=== PATIENT | female | born 1985 | race Asian ===

== ENCOUNTER → 2017-12-20 | Outpatient (CLI) | payer BC | LOC: FIMAGING 13:29 | PROVIDERS: ATTEND Obstetrics & Gynecology | DX: O09.813 Supervision of pregnancy resulting from assisted reproductive technology, third trimester (principal); O30.033 Twin pregnancy, monochorionic/diamniotic, third trimester; O26.873 Cervical shortening, third trimester; Z3A.29 29 weeks gestation of pregnancy ==

== ENCOUNTER → 2017-12-29 | Outpatient (CLI) | payer BC | LOC: FIMAGING 10:53 | PROVIDERS: ATTEND Obstetrics & Gynecology | DX: O30.032 Twin pregnancy, monochorionic/diamniotic, second trimester (principal); O26.872 Cervical shortening, second trimester; O09.812 Supervision of pregnancy resulting from assisted reproductive technology, second trimester; Z3A.22 22 weeks gestation of pregnancy ==

== ENCOUNTER → 2018-01-03 | Outpatient (CLI) | payer BC | LOC: FIMAGING 11:31 | PROVIDERS: ATTEND Obstetrics & Gynecology | DX: O30.032 Twin pregnancy, monochorionic/diamniotic, second trimester (principal); O09.812 Supervision of pregnancy resulting from assisted reproductive technology, second trimester; O98.412 Viral hepatitis complicating pregnancy, second trimester; B19.10 Unspecified viral hepatitis B without hepatic coma; Z3A.23 23 weeks gestation of pregnancy ==

== ENCOUNTER → 2018-01-19 | Outpatient (CLI) | payer BC | LOC: FIMAGING 11:36 | PROVIDERS: ATTEND Obstetrics & Gynecology | DX: O30.032 Twin pregnancy, monochorionic/diamniotic, second trimester (principal); O26.872 Cervical shortening, second trimester; O09.812 Supervision of pregnancy resulting from assisted reproductive technology, second trimester; Z3A.25 25 weeks gestation of pregnancy ==

== ENCOUNTER → 2018-02-02 | Outpatient (CLI) | payer BC | LOC: FIMAGING 12:41 | PROVIDERS: ATTEND Obstetrics & Gynecology | DX: O30.033 Twin pregnancy, monochorionic/diamniotic, third trimester (principal); Z3A.27 27 weeks gestation of pregnancy ==

== ENCOUNTER → 2018-02-14 | Outpatient (CLI) | payer BC | LOC: FIMAGING 14:32 | PROVIDERS: ATTEND Obstetrics & Gynecology | DX: O30.033 Twin pregnancy, monochorionic/diamniotic, third trimester (principal); O36.5931 Maternal care for other known or suspected poor fetal growth, third trimester, fetus 1; O36.5932 Maternal care for other known or suspected poor fetal growth, third trimester, fetus 2; O43.123 Velamentous insertion of umbilical cord, third trimester; O26.873 Cervical shortening, third trimester; O09.813 Supervision of pregnancy resulting from assisted reproductive technology, third trimester; O98.413 Viral hepatitis complicating pregnancy, third trimester; B19.10 Unspecified viral hepatitis B without hepatic coma; Z3A.29 29 weeks gestation of pregnancy ==

== ENCOUNTER 2018-02-17 08:49 | Observation (INO) | payer BC | END 2018-02-17 11:00 | disposition home or self-care (01) | LOC: FLD 08:49 | PROVIDERS: ADMIT Obstetrics & Gynecology; ATTEND Obstetrics & Gynecology | DX: O30.093 Twin pregnancy, unable to determine number of placenta and number of amniotic sacs, third trimester (principal); O09.813 Supervision of pregnancy resulting from assisted reproductive technology, third trimester; O98.413 Viral hepatitis complicating pregnancy, third trimester; Z3A.20 20 weeks gestation of pregnancy ==

== ENCOUNTER 2018-02-21 09:17 | Outpatient (CLI) | payer BC ==
[2018-02-21] MEDS ORDERED: TERBUTALINE SULFATE 1 MG/ML VIAL SC PRN (10:14)
== END 2018-02-21 10:00 | disposition home or self-care (01) ==
LOC: FOBOP 09:17
PROVIDERS: ATTEND Advanced Practice Midwife
DX: O30.093 Twin pregnancy, unable to determine number of placenta and number of amniotic sacs, third trimester (principal); Z3A.30 30 weeks gestation of pregnancy

== ENCOUNTER → 2018-02-23 | Outpatient (CLI) | payer BC | LOC: FIMAGING 09:57 | PROVIDERS: ATTEND Obstetrics & Gynecology | DX: O30.033 Twin pregnancy, monochorionic/diamniotic, third trimester (principal); O98.411 Viral hepatitis complicating pregnancy, first trimester; B18.1 Chronic viral hepatitis B without delta-agent; Z3A.30 30 weeks gestation of pregnancy ==

== ENCOUNTER 2018-02-24 11:11 | Observation (INO) | payer BC | END 2018-02-24 12:38 | disposition home or self-care (01) | LOC: FOBOP 11:11 → FLD 12:13 → INTOOBSV 12:13 | PROVIDERS: ADMIT Obstetrics & Gynecology; ATTEND Obstetrics & Gynecology | DX: O30.003 Twin pregnancy, unspecified number of placenta and unspecified number of amniotic sacs, third trimester (principal); Z3A.32 32 weeks gestation of pregnancy ==

== ENCOUNTER → 2018-03-02 | Outpatient (CLI) | payer BC | LOC: FIMAGING 13:04 | PROVIDERS: ATTEND Obstetrics & Gynecology | DX: O30.033 Twin pregnancy, monochorionic/diamniotic, third trimester (principal); O34.33 Maternal care for cervical incompetence, third trimester; O98.413 Viral hepatitis complicating pregnancy, third trimester; Z3A.31 31 weeks gestation of pregnancy ==

== ENCOUNTER 2018-03-03 12:05 | Observation (INO) | payer BC ==
--- NOTE | 2018-03-03 17:09 | OBPROG ---
Labor Progress Note Assessment/Plan: Assessment: 32 y/o with mono-di TIUP @ 32 weeks for testing Plan: NST reactive, Cat I strip x2 with accels, no decels and mod variability Cont twice weekly NSTs 03/03/18 17:18 - Contraction Pattern Assessment Current Contraction Pattern: Other (Specify) (none) - FHR Assessment Twin A FHR (bpm): 130 FHR Pattern Variability: Moderate FHR Category: 1 Twin B FHR (bpm): 140 FHR Pattern Variability: Moderate FHR Category: 1 ICD10 Worksheet Patient Problems: Problems Problem Status Onset Monochorionic diamniotic twin gestation in third trimester Acute Twin Acute - ICD10 Problem Qualifiers (1) Twin (2) Monochorionic diamniotic twin gestation in third trimester
== END 2018-03-03 13:15 | disposition home or self-care (01) ==
LOC: FOBOP 12:05 → FLD 12:56
PROVIDERS: ADMIT Obstetrics & Gynecology; ATTEND Obstetrics & Gynecology
DX: O30.033 Twin pregnancy, monochorionic/diamniotic, third trimester (principal); Z3A.32 32 weeks gestation of pregnancy

== ENCOUNTER 2018-03-07 08:56 | Observation (INO) | payer BC | END 2018-03-07 10:20 | disposition home or self-care (01) | LOC: FLD 08:56 → EDSTATUS 12:00 | PROVIDERS: ADMIT Advanced Practice Midwife; ATTEND Advanced Practice Midwife | DX: O30.003 Twin pregnancy, unspecified number of placenta and unspecified number of amniotic sacs, third trimester (principal); Z3A.37 37 weeks gestation of pregnancy ==

== ENCOUNTER → 2018-03-09 | Outpatient (CLI) | payer BC | LOC: FIMAGING 12:46 | PROVIDERS: ATTEND Obstetrics & Gynecology | DX: O09.513 Supervision of elderly primigravida, third trimester (principal); O30.033 Twin pregnancy, monochorionic/diamniotic, third trimester; O36.5931 Maternal care for other known or suspected poor fetal growth, third trimester, fetus 1; O34.43 Maternal care for other abnormalities of cervix, third trimester; Z3A.32 32 weeks gestation of pregnancy ==

== ENCOUNTER 2018-03-10 06:09 | Observation (INO) | payer BC | END 2018-03-10 10:45 | disposition home or self-care (01) | LOC: FLD 10:00 → EDSTATUS 12:00 | PROVIDERS: ADMIT Hospitalist; ATTEND Hospitalist | DX: O30.003 Twin pregnancy, unspecified number of placenta and unspecified number of amniotic sacs, third trimester (principal); Z3A.00 Weeks of gestation of pregnancy not specified ==

== ENCOUNTER 2018-03-14 06:09 | Observation (INO) | payer BC | END 2018-03-14 16:00 | disposition home or self-care (01) | LOC: FLD 08:45 → EDSTATUS 12:00 | PROVIDERS: ADMIT Hospitalist; ATTEND Hospitalist | DX: O30.003 Twin pregnancy, unspecified number of placenta and unspecified number of amniotic sacs, third trimester (principal); Z3A.33 33 weeks gestation of pregnancy ==

== ENCOUNTER → 2018-03-16 | Outpatient (CLI) | payer BC | LOC: FIMAGING 13:05 | PROVIDERS: ATTEND Obstetrics & Gynecology | DX: O30.033 Twin pregnancy, monochorionic/diamniotic, third trimester (principal); O36.5931 Maternal care for other known or suspected poor fetal growth, third trimester, fetus 1; O36.5932 Maternal care for other known or suspected poor fetal growth, third trimester, fetus 2; O26.873 Cervical shortening, third trimester; O09.813 Supervision of pregnancy resulting from assisted reproductive technology, third trimester; Z3A.33 33 weeks gestation of pregnancy ==

== ENCOUNTER 2018-03-20 12:57 | Outpatient (CLI) | payer BC ==
--- NOTE | 2018-03-20 17:47 | OBPROG ---
Labor Progress Note Assessment/Plan: Assessment: IUP at 34+ wks Twins, mono/di Plan: Routine NST for twins 03/20/18 17:44 Subjective/Intrapartum Course: 03/20/18 17:45 Pt doing fine. GFM x2. no definitive ctxns. no bld. no LOF. pressure in low pelvis - Contraction Pattern Assessment Current Contraction Pattern: Other (Specify) (none) - FHR Assessment Twin A FHR (bpm): 140 FHR Pattern Variability: Moderate FHR Category: 1 Twin B FHR (bpm): 130 FHR Pattern Variability: Moderate FHR Category: 1 Oxytocin Orders Assessment - Pre-Induction/Augmentation Assessment Gestational Age: 34 week(s) and 3 day(s) ICD10 Worksheet Patient Problems: Problems Problem Status Onset Monochorionic diamniotic twin gestation in third trimester Acute Twin Acute
== END 2018-03-20 13:30 | disposition home or self-care (01) ==
LOC: FOBOP 12:57
PROVIDERS: ATTEND Obstetrics & Gynecology
DX: O30.033 Twin pregnancy, monochorionic/diamniotic, third trimester (principal); Z3A.34 34 weeks gestation of pregnancy

== ENCOUNTER → 2018-03-23 | Outpatient (CLI) | payer BC | LOC: FOBOP 13:25 | PROVIDERS: ATTEND Advanced Practice Midwife | DX: O30.003 Twin pregnancy, unspecified number of placenta and unspecified number of amniotic sacs, third trimester (principal); Z3A.34 34 weeks gestation of pregnancy ==

== ENCOUNTER → 2018-03-23 | Outpatient (CLI) | payer BC | LOC: FIMAGING 13:35 | PROVIDERS: ATTEND Obstetrics & Gynecology | DX: O30.033 Twin pregnancy, monochorionic/diamniotic, third trimester (principal); O36.5931 Maternal care for other known or suspected poor fetal growth, third trimester, fetus 1; O36.5932 Maternal care for other known or suspected poor fetal growth, third trimester, fetus 2; O09.513 Supervision of elderly primigravida, third trimester; Z3A.34 34 weeks gestation of pregnancy ==

== ENCOUNTER 2018-03-24 09:42 | Observation (INO) | payer BC ==
[2018-03-24] MEDS ORDERED: BETAMETHASONE IM SYRINGE IM ONE (10:37)
[2018-03-25] MEDS ORDERED: BETAMETHASONE IM SYRINGE IM ONE (10:30)
== END 2018-03-24 11:45 | disposition home or self-care (01) ==
LOC: FLD 09:42
PROVIDERS: ADMIT Obstetrics & Gynecology; ATTEND Obstetrics & Gynecology
PROC: 3E0E73Z Introduction of Anti-inflammatory into Products of Conception, Via Natural or Artificial Opening (ICD-10-PCS; principal; 2018-03-24)
DX: O30.003 Twin pregnancy, unspecified number of placenta and unspecified number of amniotic sacs, third trimester (principal); Z3A.35 35 weeks gestation of pregnancy
CPT/HCPCS: J0702

== ENCOUNTER 2018-03-25 11:18 | Observation (INO) | payer BC ==
[2018-03-25] MEDS ORDERED: BETAMETHASONE IM SYRINGE IM ONE (11:43)
--- NOTE | 2018-03-25 14:00 | SOAPPROG ---
SOAP Progress Note Assessment/Plan: Assessment: [id number] Twin IUP@35+wks NST- cat 1 Plan: d/c home return to L&D tomorrow for IOL 03/25/18 13:54 03/25/18 14:01 Subjective: Pt doing well, no complaints; denies any contractions, LOF, VB. Reports +FM x2 ICD10 Worksheet Patient Problems: Problems Problem Status Onset Monochorionic diamniotic twin gestation in third trimester Acute Twin Acute
== END 2018-03-25 13:20 | disposition home or self-care (01) ==
LOC: FLD 11:18
PROVIDERS: ADMIT Obstetrics & Gynecology; ATTEND Obstetrics & Gynecology
DX: O30.003 Twin pregnancy, unspecified number of placenta and unspecified number of amniotic sacs, third trimester (principal); Z3A.35 35 weeks gestation of pregnancy
CPT/HCPCS: J0702

== ENCOUNTER 2018-03-26 06:55 | Inpatient (IN) | payer BC ==
[2018-03-26] MEDS ORDERED: LIDOCAINE 1% 300 MG/30 ML SDV ONE (07:24)
[2018-03-26] MEDS ORDERED: MISOPROSTOL 200 MCG TAB ONE (07:25)
[2018-03-26] MEDS ORDERED: AMMONIA AROMATIC 1 EACH AMP IH ONE (07:25)
[2018-03-26] MEDS ORDERED: TERBUTALINE SULFATE 1 MG/ML VIAL ONE (07:25)
[2018-03-26] MEDS ORDERED: OLIVE OIL 118 ML BTL ONE (07:25)
[2018-03-26] MEDS ORDERED: OXYTOCIN 10 UNIT/ML VIAL ONE (07:25)
[2018-03-26] MEDS ORDERED: EPSOM SALT 454 GM TP PRN (07:33)
[2018-03-26] MEDS ORDERED: IBUPROFEN 600 MG TAB PO PRN (07:33)
[2018-03-26] MEDS ORDERED: MISOPROSTOL 200 MCG TAB PR PRN (07:33)
[2018-03-26] MEDS ORDERED: OXYTOCIN/RINGERS LACTATE 1,000 ML IV PRN (07:33)
[2018-03-26] MEDS ORDERED: LR 1,000 ML IV PRN (07:33)
[2018-03-26] MEDS ORDERED: OLIVE OIL 118 ML BTL MISC PRN (07:33)
[2018-03-26] MEDS ORDERED: LIDOCAINE 1% 300 MG/30 ML SDV SC PRN (07:33)
[2018-03-26] MEDS ORDERED: TERBUTALINE SULFATE 1 MG/ML VIAL IV PRN (07:33)
[2018-03-26 08:17] LABS: PLATELET COUNT 104 10^3/uL (150-400)
[2018-03-26] MEDS ORDERED: AMPICILLIN SODIUM 2 GM in NS 100 ML IV ONE (10:25)
--- NOTE | 2018-03-26 10:25 | PDGENHP ---
History and Physical - Chief Complaint IOL [place] Twins w/ IUGR at 35 wks - History of Present Illness Yovanny is a 33 yo G1 with IVF-conceived [place] twins today at 35w2d - who presents for cerclage removal and IOL. This was an IVF established in [place] and pt then moved to [place] and established with us just prior to 20 wks. She had normal Counsyl NIPT and normal PNL with chorionicity US prior to transfer. 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 Normal NT on both babies. echo normal x 2, short cervix 1.2cm 22 wks, Giraldo cerclage at [facility] single, PV prometrium 200. GBS unknown. Glucola 142, normal 3hr. Did have reassuring testing. Most recent [facility] visit, intermittent reversed EDF on baby A - rec BMZ then IOL. Labs: O pos AB neg Rubella Immune HepBSAg POS GC/C neg History Information - Allergies/Home Medication List Allergies/Adverse Reactions: No Known Allergies Allergy (Unverified 03/26/18 07:33) I have personally reviewed and updated: family history, medical history, social history, surgical history - Past Medical History no pertinent PMH - Surgical History Reports: no pertinent surgical hx - Social History Smoking Status: Never smoked Review of Systems Review of Systems: ROS: 10pt was reviewed & negative except for what was stated in HPI & below Physical Exam Physical Exam: Constitutional: no apparent distress Lab Data & Imaging Review 03/27/18 10:47 WBC 11.00 10^3/uL (3.80-9.50) H 03/26/18 07:54 RBC 3.31 10^6/uL (4.18-5.33) L 03/26/18 07:54 Hgb 11.3 g/dL (12.6-16.3) L 03/26/18 07:54 Hct 32.1 % (38.0-47.0) L 03/26/18 07:54 MCV 97.0 fL (81.5-99.8) 03/26/18 07:54 MCH 34.1 pg (27.9-34.1) 03/26/18 07:54 MCHC 35.2 g/dL (32.4-36.7) 03/26/18 07:54 RDW 14.4 % (11.5-15.2) 03/26/18 07:54 Plt Count 104 10^3/uL (150-400) L 03/26/18 07:54 MPV 12.1 fL (8.7-11.7) H 03/26/18 07:54 Neut % (Auto) 77.3 % (39.3-74.2) H 03/26/18 07:54 Lymph % (Auto) 12.4 % (15.0-45.0) L 03/26/18 07:54 [place] % (Auto) 7.5 % (4.5-13.0) 03/26/18 07:54 Eos % (Auto) 0.0 % (0.6-7.6) L 03/26/18 07:54 Baso % (Auto) 0.2 % (0.3-1.7) L 03/26/18 07:54 Nucleat RBC Rel Count 0.4 % (0.0-0.2) H 03/26/18 07:54 Absolute Neuts (auto) 8.51 10^3/uL (1.70-6.50) H 03/26/18 07:54 Absolute Lymphs (auto) 1.36 10^3/uL (1.00-3.00) 03/26/18 07:54 Absolute Monos (auto) 0.82 10^3/uL (0.30-0.80) H 03/26/18 07:54 Absolute Eos (auto) 0.00 10^3/uL (0.03-0.40) L 03/26/18 07:54 Absolute Basos (auto) 0.02 10^3/uL (0.02-0.10) 03/26/18 07:54 Absolute Nucleated RBC 0.04 10^3/uL (0-0.01) H 03/26/18 07:54 Immature Gran % 2.6 % (0.0-1.1) H 03/26/18 07:54 Immature Gran # 0.29 10^3/uL (0.00-0.10) H 03/26/18 07:54 Patient ABO/Rh REJ 03/26/18 07:54 Antibody Screen REJ 03/26/18 07:54 Assessment & Plan Assessment: 33 yo w [place] twins - here for IOL. Cerclage removal. Abx for GBS known, will start pit after 2 hrs of abx. Twin delivery precautions reviewed. RUKHSANA
[2018-03-26] MEDS ORDERED: LR 500 ML IV PRN (10:28)
[2018-03-26] MEDS ORDERED: OXYTOCIN/RINGERS LACTATE 500 ML IV SCH (10:30)
[2018-03-26] MEDS: AMPICILLIN SODIUM 1 GM in NS 100 ML IV SCH ×2 (14:45→18:32)
[2018-03-26] MEDS ORDERED: METOCLOPRAMIDE 10 MG/2 ML VIAL IVP PRN (17:41)
[2018-03-26] MEDS ORDERED: NALOXONE HCL 0.4 MG/ML INJ IVP PRN (17:41)
[2018-03-26] MEDS ORDERED: PHENYLEPHRINE HCL 100 MCG/ML SYR IVP PRN (17:41)
[2018-03-26] MEDS ORDERED: ONDANSETRON 4 MG/2 ML VIAL IVP PRN (17:41)
--- NOTE | 2018-03-26 17:41 | PREANESOB ---
Obstetric Pre-Anesthesia Info - General Info Proposed Procedure: vaginal delivery of twins : 1 Para: 0 ABIDA: 04/28/18 Gestational Age: 35 week(s) and 2 day(s) - Info Status: Full Term, Twins FHR Pattern: Reassuring - Labor Status Indications for Labor Analgesia: Pain Control Labor Epidural: Proposed Anesthesia Allergies/Adverse Reactions: Allergy/AdvReac Type Severity Reaction Status Date / Time No Known Allergies Allergy Unverified 03/26/18 07:33 Visit Medications: Generic Name Dose Route Start Last Admin Trade Name Freq PRN Reason Stop Dose Admin Lactated Ringer's 1,000 mls @ 0 mls/hr 03/26/18 07:33 Lr IV 03/27/18 07:32 PRN PRN SEE PROTOCOL CONDITIONS Protocol Per Protocol Oxytocin/Lactated Ringer's 1,000 mls @ 125 mls/hr 03/26/18 07:33 Pitocin 20 Units/Lr (Premix) IV PRN PRN Post bleeding Ampicillin Sodium 1 gm/ Sodium 100 mls @ 200 mls/hr 03/26/18 14:26 03/26/18 14:45 Chloride IV 04/25/18 14:25 100 mls Q4H CINDI Administration Protocol Lactated Ringer's 500 mls @ 500 mls/hr 03/26/18 10:28 Lr IV 03/27/18 10:28 PRN PRN Maternal Hypotension Oxytocin/Lactated Ringer's 500 mls @ 0 mls/hr 03/26/18 10:30 Pitocin 30 Units/Lr (Premix) IV 09/22/18 10:29 CONT CINDI Protocol Per Protocol Ibuprofen 600 mg 03/26/18 07:33 Motrin PO ONCE PRN post , pain Lidocaine HCl 300 mg 03/26/18 07:33 Lidocaine Hcl 1% SC 09/22/18 07:32 ONCE PRN episiotomy Magnesium Sulfate 454 gm 03/26/18 07:33 Epsom Salt TP 09/22/18 07:32 Q1H PRN perineal discomfort Misoprostol 800 - 1,000 mcg 03/26/18 07:33 Cytotec IA ONCE PRN Vaginal Atony/Bleeding [place] Oil 118 ml 03/26/18 07:33 Sweet Oil MISC 09/22/18 07:32 ONCE PRN perineal massage Terbutaline Sulfate 0.25 mg 03/26/18 07:33 Brethine IV 09/22/18 07:32 ONCE PRN Tachysystole Discontinued Medications Generic Name Dose Route Start Last Admin Trade Name Delmy PRN Reason Stop Dose Admin Ammonia (Aromatic Spirit) Confirm 03/26/18 07:25 Ammonia Aromatic Administered 03/26/18 07:26 Dose 1 each IH .STK-MED ONE Ampicillin Sodium 2 gm/ Sodium 110 mls @ 220 mls/hr 03/26/18 10:25 03/26/18 10:40 Chloride IV 03/26/18 10:54 110 mls ONCE ONE Administration Protocol Lidocaine HCl Confirm 03/26/18 07:24 Lidocaine Hcl 1% Administered 03/26/18 07:25 Dose 300 mg .ROUTE .STK-MED ONE Misoprostol Confirm 03/26/18 07:25 Cytotec Administered 03/26/18 07:26 Dose 1,000 mcg .ROUTE .STK-MED ONE [place] Oil Confirm 03/26/18 07:25 Sweet Oil Administered 03/26/18 07:26 Dose 118 ml .ROUTE .STK-MED ONE Oxytocin Confirm 03/26/18 07:25 Pitocin Administered 03/26/18 07:26 Dose 40 unit .ROUTE .STK-MED ONE Terbutaline Sulfate Confirm 03/26/18 07:25 Brethine Administered 03/26/18 07:26 Dose 1 mg .ROUTE .STK-MED ONE - Anesthesia History Response to Local Anesthetics: Not Applicable Anesthesia & Operative History: No Prior Problems Family Anesthesia History: Not Applicable - Focused Exam Neck exam: FROM Mallampati Score: Class 1 Mouth exam: normal dental/mouth exam Pulmonary: no respiratory distress Cardiovascular: regular rate and rhythym Labs: 03/26/18 07:54 Patient ABO/Rh O POSITIVE 03/26/18 10:20 - Plan Anesthetic Plan: labor epidural Consent Signed and on Chart: Yes Patient/Guardian Understands and Agrees to Plan: Yes
[2018-03-26] MEDS ORDERED: BUPIVACAINE 0.25% 30 ML SDV ONE (17:50)
[2018-03-26] MEDS ORDERED: LR 500 ML IV SCH (18:00)
[2018-03-26] MEDS ORDERED: fentaNYL 2MCG/ML/BUP 0.1% RTU 100 ML EP SCH (18:00)
[2018-03-26] MEDS ORDERED: fentaNYL 200 MCG, BUPIVACAINE 0.5% 20 ML in NS 100 ML EP SCH (18:00)
--- NOTE | 2018-03-26 18:25 | POSTANESTH ---
Post Anesthetic Evaluation Cardiovascular Status: Normal, Stable Respiratory Status: Normal, Stable Level of Consciousness/Mental Status: Can Participate in Eval Pain Control: Adequate, Prn Tx Ordered Nausea/Vomiting Control: Adequate, Prn Tx Ordered Complications Possibly Related to Anesthesia: None Noted
--- NOTE | 2018-03-26 19:49 | SOAPPROG ---
SOAP Progress Note Assessment/Plan: Assessment: twins near complete and ready for double setup Dr. Nikki santa reviewed and agree Plan: arrived at 1932, pt. complete and ready to push I will remain present for duration with pain control or other anesthetics as needed, including SAB/GA if needed. 03/26/18 19:46 Subjective: pt. with twins (vertex/vertex) and ready for with double set up Objective: Laboratory Results 03/26/18 07:54 9 cm at 1915 and ready for double set up - Pending Discharge Pending Discharge Within 24 Hours: No Pending Discharge Within 48 Hours: No ICD10 Worksheet Patient Problems: Problems Problem Status Onset Twin Acute - ICD10 Problem Qualifiers (1) Twin Qualifiers: Trimester: third trimester
--- NOTE | 2018-03-26 20:41 | POSTANESTH ---
Post Anesthetic Evaluation Cardiovascular Status: Normal, Stable Respiratory Status: Normal, Stable Level of Consciousness/Mental Status: Can Participate in Eval, Alert and Oriented Pain Control: Adequate, Prn Tx Ordered Nausea/Vomiting Control: Adequate, Prn Tx Ordered Complications Possibly Related to Anesthesia: None Noted (KAREN worked well and wearing off nicely)
--- NOTE | 2018-03-26 20:53 | OBDEL ---
Info Type: Vaginal Presentation at Delivery: Vertex L&D Analgesia/Anesthesia Type: Epidural GBS+: Yes Antibiotic Used for + GBS: Ampicillin Intrapartum Medications: Generic Name Dose Route Start Last Admin Trade Name Delmy PRN Reason Stop Dose Admin Ampicillin Sodium 1 gm/ Sodium 100 mls @ 200 mls/hr 03/26/18 14:26 03/26/18 18:32 Chloride IV 04/25/18 14:25 100 mls Q4H CINDI Administration Protocol Discontinued Medications Generic Name Dose Route Start Last Admin Trade Name Freq PRN Reason Stop Dose Admin Ampicillin Sodium 2 gm/ Sodium 110 mls @ 220 mls/hr 03/26/18 10:25 03/26/18 10:40 Chloride IV 03/26/18 10:54 110 mls ONCE ONE Administration Protocol Indications for Delivery: Growth Restriction Mo-Do Twins Vaginal Delivery - Delivery Provider Delivery Physician/CNM: Jefry Pereyra - Labor and Delivery Onset of Contractions Date: 03/26/18 Onset of Contractions Time: 13:00 Onset of Contractions Type: Augmented Rupture of Membranes Date: 03/26/18 Rupture of Membranes Time: 20:00 Rupture of Membranes Type: Artificial Amniotic Fluid Color: Clear Dilation Complete Date: 03/26/18 Dilation Complete Time: 20:00 Non-surgical Procedures: Amniotomy, FSE Laceration: 1st Degree (Left sidewall) Repair: 2-0, Vicryl (Single figure of eight) Vaginal Sponge Count Correct: Yes Vaginal Needle Count Correct: Yes Vaginal Sweep Performed: Yes EBL: 400cc Delivery Events: None, Nuchal Cord (Tight on baby A, cut at perineum.) Delivery Comment: Pt had epidural and Pitocin running -- AROM had been performed on baby A and FSE placed hours earlier. Tracings for both babies Category I throughout Stage I. I was alerted that pt was 9cm so we moved her to the OR for Stage II. Positioned in low lithotomy on the OR table, legs in stirrups. SCE confirmed completely dilated. Pt pushed for approximately 20 minutes with baby A, ultimately delivering in direct OA position, very tight nuchal cord that I had to cut at the perineum - no delayed cord clamping for baby A. Once cord cut, baby handed off the peds. FHR for baby B 140s and stable right off the bat after delivery of A. SCE repeated and vertex of baby B already down and well applied to cervix. AROM performed with clear fluid for B. Pt pushed 4 times with baby B and delivered him direct OP without issue. Baby placed on moms chest - delayed cord clamping 60 seconds then handed off to peds. Placentas ( fused) delivered easily in 2 minutes. Shallow left sidewall laceration needed one [id number] with 2-0 vicryl. Mom and babies doing well in room after repair. Did did have some light but ongoing bleeding during repair that seemed uterine, so placed 1000mcg rectal Cytotec in addition to IV Pitocin. Cord Gases: Cord Gases Cord Blood PCO2 53.5 mmHg (37-60) 03/26/18 20:33 Cord Base Excess -0.2 mEq/L (-13.6--3.2) H 03/26/18 20:33 Cord ABG pH 7.32 (7.10-7.37) 03/26/18 20:33 Cord VBG pH TNP 03/26/18 20:33 - Medications Labor Augmentation/Induction Methods Used: Pitocin Labor Augmentation/Induction Indication: IUGR Operative Report - Delivery Cord Gases: Cord Gases Cord Blood PCO2 53.5 mmHg (37-60) 03/26/18 20:33 Cord Base Excess -0.2 mEq/L (-13.6--3.2) H 03/26/18 20:33 Cord ABG pH 7.32 (7.10-7.37) 03/26/18 20:33 Cord VBG pH TNP 03/26/18 20:33 [place] Data ABIDA: 04/28/18 Gestational Age: 35 week(s) and 2 day(s) Twin A Delivery Date: 03/26/18 Delivery Time: 20:17 Sex of Infant: Male Twin B Delivery Date: 03/26/18 Delivery Time: 20:23 Sex of Infant: Male ICD10 Worksheet Patient Problems: Problems Problem Status Onset Cervical cerclage suture present Acute IUGR (intrauterine growth retardation) affecting mother Acute In vitro fertilization Acute Monochorionic diamniotic twin gestation Acute Twin Acute Uterine cervical insufficiency during Acute - ICD10 Problem Qualifiers (1) Monochorionic diamniotic twin gestation Qualifiers: Trimester: third trimester Qualified Code(s): O30.033 - Twin , monochorionic/diamniotic, third trimester (2) IUGR (intrauterine growth retardation) affecting mother Qualifiers: Fetus number: fetus 2 of multiple gestation Trimester: third trimester Qualified Code(s): O36.5932 - Maternal care for other known or suspected poor growth, third trimester, fetus 2 (3) Uterine cervical insufficiency during (4) Cervical cerclage suture present Qualifiers: Trimester: third trimester Qualified Code(s): O34.33 - Maternal care for cervical incompetence, third trimester (5) In vitro fertilization
[2018-03-26] MEDS ORDERED: SIMETHICONE 80 MG TAB CHEW PO PRN (21:05)
[2018-03-26] MEDS ORDERED: oxyCODONE IR 5 MG TAB PO PRN (21:05)
[2018-03-26] MEDS ORDERED: DOCUSATE SODIUM 100 MG CAP PO PRN (21:05)
[2018-03-26] MEDS ORDERED: HYDROCORTISONE 0.5% CREAM TP PRN (21:05)
[2018-03-27] MEDS: ACETAMINOPHEN 325 MG TAB PO SCH ×4 (05:54→19:04)
[2018-03-27] MEDS: AMPICILLIN SODIUM 1 GM in NS 100 ML IV SCH ×3 (05:55→12:01)
[2018-03-27] MEDS: IBUPROFEN 600 MG TAB PO SCH ×4 (05:56→21:14)
--- NOTE | 2018-03-27 15:08 | OBPP ---
Progress Note Assessment/Plan: Assessment: 2 y/p PPD #1 s/p IOL @ 35 weeks secondary to mono/di twins and IUGR with intermittent reversal of flow on twin A Plan: Doing well, babies stable in NICU. Continue routine PPC and support. D.c to border tomorrow. 03/27/18 15:06 Subjective/ Course: 03/27/18 15:05 Pt is doing well today. She has min cramping controlled with Ibuprofen. She is ambulating and voiding and has min lochia. She is working on breast feeding the twins and is pumping and getting good colustrum Objective: 03/27/18 10:47 Patient ABO/Rh O POSITIVE 03/26/18 10:20 Group B Strep DNA POSITIVE (NEGATIVE) H 03/26/18 10:52 Temp Pulse Resp BP Pulse Ox 36.6 C 60 17 105/64 92 03/27/18 09:00 03/27/18 09:00 03/27/18 09:00 03/27/18 09:00 03/27/18 09:00 Uterine Position/Fundal Height: Umbilicus -2 Uterine Tone: Firm Physical Exam - Physical Exam General Appearance: WD/WN, alert, no apparent distress Neck: non-tender, full range of motion, supple Respiratory: chest non-tender, lungs clear, normal breath sounds Cardiac/Chest: regular rate, rhythm Extremities: swelling (no), Fabby's sign (neg)
[2018-03-28] MEDS: ACETAMINOPHEN 325 MG TAB PO SCH ×3 (01:09→16:06)
[2018-03-28] MEDS: IBUPROFEN 600 MG TAB PO SCH ×3 (04:37→16:07)
[2018-03-28] MEDS ORDERED: IRON POLYSAC/IRON HEME 28 MG TAB PO SCH (09:00)
--- NOTE | 2018-03-28 13:10 | OBGCSDC ---
General Delivery Information - General Info : 1 Para: 1 Abortions: 0 Type: Vaginal L&D Analgesia/Anesthesia Type: Epidural Admission Date: 03/26/18 Labs: Patient ABO/Rh O POSITIVE 03/26/18 10:20 Hct 32.4 % (38.0-47.0) L 03/27/18 10:47 Group B Strep DNA POSITIVE (NEGATIVE) H 03/26/18 10:52 - Hospital Course : 03/27/18 15:05 Pt is doing well today. She has min cramping controlled with Ibuprofen. She is ambulating and voiding and has min lochia. She is working on breast feeding the twins and is pumping and getting good colustrum 03/28/18 15:22 S) Pt doing well, reports min pain and bleeding. she is ambulating and voiding without difficulty. She is . Will discharge to rooming in status today. O) VSS, afebrile constitutional: WNWF, A&Ox3 HEENT: normocephalic, atraumatic, supple Heart: RRR, No murmur Chest: CTA-B Abdomen: Soft, nontender Uterus: Firm at U-2 Lochia: Minimal rubra Perineum: Intact, healing well Extremities: Trace edema, and negative Fabby's sign Neuro: Grossly normal A) 33 year-old S/P at 35 weeks 2 y/p PPD #1 s/p mono/di twins at 35 weeks - babies stable in NICU PPD#2 /pumping going well Anemia P) Discharge home today Continue Pelvic rest x6wks Discussed danger signs (infection, preeclampsia, depression, heavy bleeding, etc) Home with rx for Iron bid RTO in 4/6 weeks 03/28/18 15:24 03/28/18 15:36 Vaginal - Delivery Provider Delivery Physician/CNM: Jefry Pereyra - Diagnosis Labor: Augmented Rupture of Membranes Type: Artificial Amniotic Fluid Color: Clear Laceration: 1st Degree (Left sidewall) Repair: 2-0, Vicryl (Single figure of eight) Delivery Events: None, Nuchal Cord (Tight on baby A, cut at perineum.) - Procedures Non-surgical Procedures: Amniotomy, FSE - Delivery Non-surgical Procedures: Amniotomy, FSE EBL: 400cc [place] Data ABIDA: 04/28/18 Gestational Age: 35 week(s) and 4 day(s) Twin A Delivery Date: 03/26/18 Delivery Time: 20:17 Sex of : Male Weight (gm): 1950 g Twin B Delivery Date: 03/26/18 Delivery Time: 20:23 Sex of : Male Weight (gm): 1774 g Discharge Information - Discharge Information Prescriptions: Docusate Sodium [Colace 100 MG (*)] 100 mg PO BID PRN #60 cap PRN Reason: Constipation Ibuprofen [Motrin (*)] 600 mg PO Q6H #30 tab Iron Polysacch/Iron Heme Polyp [Bifera] 28 mg PO DAILY #30 tab Condition: Good
[2018-03-28 16:26] VITALS: BP 99/59
== END 2018-03-28 19:07 | disposition home or self-care (01) | DRG 775 ==
LOC: MERGE 06:55 → FLD 06:55 → FOB 23:09
PROVIDERS: ADMIT Obstetrics & Gynecology; ATTEND Obstetrics & Gynecology
PROC: 10E0XZZ Delivery of Products of Conception, External Approach (ICD-10-PCS; principal; 2018-03-26)
PROC: 3E0P7GC Introduction of Other Therapeutic Substance into Female Reproductive, Via Natural or Artificial Opening (ICD-10-PCS; principal; 2018-03-26)
PROC: 0HQ9XZZ Repair Perineum Skin, External Approach (ICD-10-PCS; principal; 2018-03-26)
PROC: 10907ZC Drainage of Amniotic Fluid, Therapeutic from Products of Conception, Via Natural or Artificial Opening (ICD-10-PCS; principal; 2018-03-26)
DX: O30.033 Twin pregnancy, monochorionic/diamniotic, third trimester (principal); O70.0 First degree perineal laceration during delivery; O99.820 Streptococcus B carrier state complicating pregnancy; O34.33 Maternal care for cervical incompetence, third trimester; O69.2XX1 Labor and delivery complicated by other cord entanglement, with compression, fetus 1; O36.5932 Maternal care for other known or suspected poor fetal growth, third trimester, fetus 2; Z3A.35 35 weeks gestation of pregnancy; Z37.0 Single live birth
CPT/HCPCS: J0290; J2370; J2590; J3010; J3105